=== PATIENT | female | born 1980 | race Caucasian/White ===

== ENCOUNTER 2021-04-05 12:43 | Outpatient (CLI) | payer OTHER ==
--- NOTE | 2021-04-05 16:53 | MRI Report ---
PROCEDURE: Shoulder RT W/O INDICATIONS: INJURY TO RIGHT SHOULDER TECHNIQUE: Noncontrast oblique coronal T2 fast spin echo with fat saturation, oblique sagittal T1 spin echo and T2 fast spin echo with fat saturation, axial T1 spin echo and T2 fast spin echo with fat saturation t hrough the shoulder. COMPARISON: None. FINDINGS: Image quality: Excellent. Rotator cuff: Moderate T2 signal elevation throughout the supraspinatus and infraspinatus tendons at the humeral insertion sites, indicating tendinopathy. Superimposed low-grade partial thickness articu lar surface tearing of the anterior, mid, and posterior supraspinatus, as well as the anterior and po sterior infraspinatus tendons at the humeral insertion sites. Subscapularis and teres minor tendons a re intact. No rotator cuff atrophy. Bones and bursae: No bone marrow contusions or fractures. Moderate acromioclavicular joint degenerat ion. The acromion demonstrates conventional anatomy, without an os acromiale. No pathologic subacro mial/subdeltoid bursal fluid is present. Capsule and soft tissues: In the absence of intra-articular contrast, the labrum and glenohumeral li gaments appear intact. The long head of the biceps tendon demonstrates normal location and morpholog y. The rotator interval appears normal, without fibrosis. The coracohumeral ligament is normal in t hickness. IMPRESSION: 1. Supraspinatus and infraspinatus tendinopathy with superimposed partial thickness tearing. No full- thickness rotator cuff tear. 2. Acromioclavicular joint osteoarthritis. Reviewed by: Joni Alves MD on 04/05/2021 4:52 PM PST Approved by: Joni Alves MD on 04/05/2021 4:52 PM PST Station ID: [id number]
== END 2021-04-05 12:44 | disposition home or self-care (01) ==
LOC: DI 12:43
PROVIDERS: ATTEND Physician Assistant
DX: M75.111 Incomplete rotator cuff tear or rupture of right shoulder, not specified as traumatic (principal); M19.011 Primary osteoarthritis, right shoulder

== ENCOUNTER 2022-02-28 15:58 | Outpatient (CLI) | payer OTHER ==
--- NOTE | 2022-02-28 16:35 | SLEEP CARE CONSULTATION ---
Information from patient questionnaire entered by Trini Breaux. I have reviewed and concur with the information entered by Trini Breaux. This document represents the service I personally performed and the decisions made by me, Gila Deleon ARNP. History of Present Illness Service Date and Time: 02/28/2022 1558 Reason for Visit: New patient, Previously diagnosed sleep apnea, sleep apnea on CPAP therapy Chief Complaint: reports: Other (ONGOING CARE) Date of Onset: 20+YRS Usual bedtime: 12-2AM Time it takes to fall asleep: 1-4HRS Snores at night: Yes Observed to quit breathing while asleep: Yes Sleeps alone due to snoring: No Number of times waking at night: 1-2 Reasons for waking at night: reports: Bathroom Toss, Turn, or Twitch while sleeping: Yes Recalls having dreams: Yes Usually gets out of bed at: 10AM-12PM Feels refreshed in the morning: No Morning headache: No Sleepy or fatigued during the day: Yes Ever fallen asleep while driving: No Takes day naps: Yes Dreams during day naps: Yes Prior sleep studies: Yes (2012,2017 [facility]) Additional HPI information: ANDRESSA SON was previously diagnosed to have unknown, AHI unknown, sleep apnea-hypopnea syndrome and comes in today to establish care for CPAP therapy. She was originally diagnosed in 2013 with a mild sleep apnea. Her last sleep study was done at [facility] in about 2017. - Parasomnia Symptoms Ever been unable to move upon waking from sleep: Yes Walks in sleep: No Talks in sleep: Yes Ever acted out dreams in sleep: No Ever felt weak in the knees when startled or emotional: Yes Bothered by creepy, crawly, restless sensations in legs: Yes Problems with memory or concentration: Yes CPAP Compliance Data - Data Reviewed with Patient Average duration of nightly device use: 8 hours 25 minutes Compliance rate %: 94 (178/180 days used) Current pressure setting (cmH2O): 8-10 Average residual AHI: 2.5 Central apnea: 0.1 Obstructive apnea: 2.3 Average large leak: 0.0 Compliance data discussion: She has a ResMed Airsense 10 that was last updated in 01/2020. She has been getting her supplies from [employer]. She is using a nasal pillows mask, ResMed [place]o Fx for her. Subjective Missed days of use due to: reports: other (fell asleep with CPAP on) Patient concerns: denies: aerophagia, mask discomfort, air blowing in eyes, mask leak noise, condensation in mask/hose, nasal congestion, dry mouth, nose, throat, epistaxis Observed to snore while using device: No Current pressure setting perceived as: comfortable On therapy, patient: reports: sleeping better, awakening more refreshed, being more awake and alert during the day, more rested overall. denies: drowsiness while driving Initial [place] Sleepiness Scale score: 9 (02/28/2022) Past Medical History Past Medical History: reports: Hypothyroidism, Fibromyalgia, Anxiety, Depression Social History The patient's occupation is a [employer]. Patient is and lives in [place]. Have you smoked in the past 12 months: No Alcohol use: Yes Alcohol amount and frequency: 1-2 DRINKS 1-4 TIMES A MONTH Caffeine use: Yes Caffeine amount and frequency: 4 PLUS SODAS Family History Family history of sleep disordered breathing: No Allergies and Home Medications Known drug allergies: No Drug allergies reviewed: Yes (NKDA) Home medication list reviewed: Yes Allergy and home medication list: Medications: Levothyroxine 88 mcg/day Nortriptyline 50 mg/day Sertraline 150 mg/ day Review of Systems Weight gain over past 5 years: 20-30 Cardiovascular: denies: high blood pressure Gastrointestinal: reports: heartburn Neurological: denies: headaches Psychiatric: reports: anxiety, depression Ear/Nose/Throat: denies: tonsillectomy Endocrine: reports: thyroid disease, sluggishness Musculoskeletal: reports: joint pain, back pain, muscle pain or cramping Immunologic: reports: allergies to food or environment Physical Exam Vital signs obtained and entered by: TRINI Esqueda MA Blood Pressure: 136/78 (LEFT ARM) Cuff size: regular Heart Rate: 76 O2 Saturation: 98 Height: 5 ft 7.75 in Weight: 211 lb 9.6 oz Body Mass Index: 32.3 BMI Classification: Obese Neck circumference: 15 Heart: regular rate and rhythm Lungs: clear bilaterally Impression and Plan 1. Obstructive Sleep Apnea-Hypopnea Syndrome, unknown, with good treatment compliance and good apnea control. On CPAP therapy, the patient has better sleep quality and is more rested overall. We will request a copy of her last sleep study done by [facility] in 2018. Once I have this, I can update a prescription with her DME [facility]. She is compliant with no issues and has significant provement of her sleep apnea. I will have her follow-up in a year. Patient's apnea severity and rationale for treatment to reduce apnea, improve sleep quality and reduce cardiovascular and cerebrovascular events was reviewed. I also reviewed the benefit of consistent device use of CPAP for depression/anxiety. 2. Obesity, unspecified. Currently patients BMI is 32.3. Obesity increases the risk of apnea, CPAP pressure requirements and overall health risks especially cardiovascular and diabetes. Thus patient is advised to lose weight. * Continue auto CPAP pressure at 8-10 cmH2O * Update supplies * Notify me if snoring with mask or feeling that the pressure is too much or too little * Attempt to lose weight * Call this office if any problems using CPAP * Return for follow up in 1 year, or sooner if concerns arise Counseling Topics: Spare mask, Weight loss health impact Visit Type: In Office Time Spent with Patient (minutes): 33 Provider Statement: I spent 100% of the Face to Face Visit with the patient with greater than 50% spent counseling the patient and coordination of care.
[2022-02-28 16:49] VITALS: BP 136/78
== END 2022-02-28 15:59 | disposition home or self-care (01) ==
LOC: SC 15:58
PROVIDERS: ATTEND Nurse Practitioner Family
DX: G47.33 Obstructive sleep apnea (adult) (pediatric) (principal); E66.9 Obesity, unspecified; Z68.32 Body mass index [BMI] 32.0-32.9, adult
CPT/HCPCS: 99203; 99212